=== PATIENT | female | born 1995 | race Caucasian/White ===

== ENCOUNTER 2019-03-14 22:49 | Emergency (ER) | payer OTHER ==
[2019-03-14] MEDS ORDERED: IBUPROFEN 600 MG TABLET PO ONE (23:30)
[2019-03-14] MEDS ORDERED: ACETAMINOPHEN 325 MG TABLET PO ONE (23:30)
--- NOTE | 2019-03-14 23:31 | ER Document Report ---
HPI - HPI Time Seen by Provider: 03/14/19 23:24 Pain Level: 4 Context: Patient is a 23-year-old female who presents emergency department with a chief complaint of left wrist pain. Around 1030 this evening she was wrestling in the kitchen and outstretched her arm and hyperextended her wrist. She has prior wrist fractures in the past. - ROS Notes: REVIEW OF SYSTEMS: CONSTITUTIONAL : Denies recent illness. Denies recent unintentional weight loss. Denies fever, chills, or sweats. MUSCULOSKELETAL: See HPI SKIN: Denies rash, itchiness, or lesions HEMATOLOGIC : Denies easy bruising or bleeding. NEUROLOGICAL: Denies no numbness or tingling denies weakness. Denies headache. Denies altered mental status. Denies alteration in speech. PSYCHIATRIC: Denies stress, anxiety, alteration in sleep patterns, or depressi on. All other systems reviewed and negative. - REPRODUCTIVE Reproductive: DENIES: : Past Medical History - Social History Smoking Status: Unknown if Ever Smoked Family History: Reviewed & Not Pertinent Vertical Provider Document - CONSTITUTIONAL Agree With Documented VS: Yes Exam Limitations: No Limitations General Appearance: No Apparent Distress Notes: PHYSICAL EXAMINATION: GENERAL: Appears well, healthy, well-nourished, no acute distress. HEAD: Normocephalic, atraumatic. EYES: PERRL, conjunctiva normal, all extraocular movements intact, sclera nonicteric EXTREMITIES: Normal strength and range of motion, no pitting or edema. No cyanosis. Tenderness noted to left wrist and anatomical snuffbox area. NEUROLOGICAL: Moves all extremities upon command. Strength 5/5 in all extremities. PSYCH: Normal mood, normal affect. SKIN: Warm, dry. No rash, lesions, ulcerations noted. Normal skin turgor. - INFECTION CONTROL TRAVEL OUTSIDE OF THE [place] IN LAST 30 DAYS: No Course - Re-evaluation Re-evalutation: 03/14/19 23:55 Patient's x-rays negative for any acute fracture. She does have pain noted at the anatomical snuffbox area. I am suspicious of a possible scaphoid bone fracture. No vascular compromise noted. Pulses 2+. Patient has good flexion and extension of all digits. Capillary refill less than 3 seconds. She will follow-up with orthopedics in regards to this visit. She will be laced in a thumb spica. Follow-up precautions were given. Verbal discharge instructions were given to the patient. They verbalized understanding. They are stable for discharge. - Vital Signs Vital signs: Temp Pulse Resp BP Pulse Ox 98.4 F 82 16 134/70 H 99 03/14/19 23:00 03/14/19 23:00 03/14/19 23:00 03/14/19 23:00 03/14/19 23:00 Discharge - Discharge Clinical Impression: Contusion of left wrist Qualifiers: Encounter type: initial encounter Qualified Code(s): S60.212A - Contusion of left wrist, initial encounter Condition: Stable Disposition: HOME, SELF-CARE Additional Instructions: You were seen today in the emergency department for a left wrist injury. At this time, there are no fractures, but you have pain in the anatomical snuffbox, which may indicate a fracture in one of your wrist bones. Please follow-up with your primary care provider if your symptoms persist. Please take ibuprofen 600 mg and Tylenol 1000 mg every 6 hours for your pain. You are also being placed in a splint. Please wear the splint to help with the pain. Please follow-up with orthopedics in regards to this visit. Referrals: PRESTON MANZANARES MD [ACTIVE STAFF] - Follow up in 3-5 days
--- NOTE | 2019-03-14 23:36 | RADIOLOGY REPORT (SQ) ---
EXAM DESCRIPTION: [facility]: XR WRIST 1-2 VIEWS Views: 2 CLINICAL HISTORY: 23 years Female, fell oin left wrist COMPARISON: None. FINDINGS: Negative for acute fracture, dislocation, or radiopaque foreign body. IMPRESSION: 1. No acute findings. 2. If symptoms persist, consider follow-up 4 view wrist series.
[2019-03-15 01:03] VITALS: BP 114/84
== END 2019-03-15 00:30 | disposition home or self-care (01) ==
LOC: ER 22:49
DX: S60.212A Contusion of left wrist, initial encounter (principal); M25.532 Pain in left wrist; X50.0XXA Overexertion from strenuous movement or load, initial encounter; Y93.83 Activity, rough housing and horseplay; Y92.000 Kitchen of unspecified non-institutional (private) residence as the place of occurrence of the external cause
CPT/HCPCS: 99283

== ENCOUNTER 2019-03-17 13:25 | Emergency (ER) | payer OTHER ==
[2019-03-17] MEDS ORDERED: HYDROCODONE/ACETAMINOPHEN 5-325 MG TABLET PO ONE (14:22)
--- NOTE | 2019-03-17 14:23 | ER Document Report ---
HPI - HPI Patient complains to provider of: Left wrist injury Time Seen by Provider: 03/17/19 13:59 Onset/Duration: Persistent Quality of pain: Achy Pain Level: 5 Context: Patient was wrestling and fell onto an outstretched hand 3 days ago. Patient was seen initially after this injury and had 2 view x-ray performed of the left wrist. Patient was advised by the discharge nurse that she should return in 3 days if she was not any better. Review of patient's discharge paperwork advised patient to follow-up with orthopedics in 3 to 5 days, patient did not follow-up with orthopedics. Patient denies any new injury. Associated Symptoms: Other - Left wrist pain Exacerbated by: Movement Relieved by: Denies Similar symptoms previously: Yes Recently seen / treated by doctor: Yes - ROS ROS below otherwise negative: Yes Systems Reviewed and Negative: Yes All other systems reviewed and negative - NEURO Neurology: DENIES: Weakness - GASTROINTESTINAL Gastrointestinal: DENIES: Nausea - REPRODUCTIVE Reproductive: DENIES: : - MUSCULOSKELETAL Musculoskeletal: REPORTS: Extremity pain - DERM Skin Color: Normal Skin Problems: None Past Medical History - General Information source: Patient - Social History Smoking Status: Current Every Day Smoker Smoking Education Provided: Yes Frequency of alcohol use: Occasional Drug Abuse: None Occupation: none Lives with: Spouse/Significant other Family History: Reviewed & Not Pertinent - Medical History Medical History: Negative Renal/ Medical History: Denies: Hx Peritoneal Dialysis Past Surgical History: Reports: Hx Oral Surgery - tonsils/adenoids Vertical Provider Document - CONSTITUTIONAL Agree With Documented VS: Yes Exam Limitations: No Limitations General Appearance: WD/WN, No Apparent Distress - INFECTION CONTROL TRAVEL OUTSIDE OF THE [place] IN LAST 30 DAYS: No - HEENT HEENT: Atraumatic, Normocephalic - NECK Neck: Normal Inspection - RESPIRATORY Respiratory: No Respiratory Distress - CARDIOVASCULAR Pulses: Normal: Radial - MUSCULOSKELETAL/EXTREMETIES Musculoskeletal/Extremeties: MAEW, Tender - Left wrist tenderness over distal radius, patient with scaphoid tenderness, No Edema - NEURO Level of Consciousness: Awake, Alert, Appropriate Motor/Sensory: No Motor Deficit - DERM Integumentary: Warm, Dry, No Rash Course - Re-evaluation Re-evalutation: 03/17/19 Patient without any obvious fracture on x-ray with additional views obtained. Patient immobilized and advised to follow-up with orthopedics for further evaluation given her tenderness over the anatomical snuffbox. Discussed with patient concern about possible hidden fracture and need for orthopedic follow- up. - Vital Signs Vital signs: Temp Pulse Resp BP Pulse Ox 98.2 F 92 16 122/69 98 03/17/19 13:41 03/17/19 13:41 03/17/19 13:41 03/17/19 13:41 03/17/19 13:41 - Diagnostic Test Radiology reviewed: Image reviewed, Reports reviewed Procedures - Immobilization Left Wrist Pre-Proc Neuro Vasc Exam: Normal Immobilizer type: Thumb spica Performed by: PCT Post-Proc Neuro Vasc Exam: Normal Alignment checked and good: Yes Discharge - Discharge Clinical Impression: Left wrist sprain Qualifiers: Encounter type: initial encounter Qualified Code(s): S63.502A - Unspecified sprain of left wrist, initial encounter Condition: Stable Disposition: HOME, SELF-CARE Instructions: Ice & Elevation ([facility]), Possible Hidden Fracture ([facility]), Splint Precautions ([facility]), Wrist Sprain ([facility]) Additional Instructions: Return immediately for any new or worsening symptoms Followup with your primary care provider, call tomorrow to make a followup appointment Follow-up with orthopedics for further evaluation, call tomorrow for an appointment. Prescriptions: Naproxen [Naprosyn 250 Nmg Tablet] 1 tab PO BID #14 tablet Forms: Smoking Cessation Education Referrals: [facility] [Provider Group] - Follow up tomorrow
--- NOTE | 2019-03-17 15:04 | RADIOLOGY REPORT (SQ) ---
EXAM DESCRIPTION: WRIST LEFT 3 VIEWS COMPLETED DATE/TIME: 03/17/2019 2:49 pm REASON FOR STUDY: L wrist pain, include scaphoid view COMPARISON: LEFT WRIST RADIOGRAPHS 03/14/2019 NUMBER OF VIEWS: Three views. TECHNIQUE: AP, lateral, and oblique radiographic images acquired of the left wrist. LIMITATIONS: None. FINDINGS: MINERALIZATION: Normal. BONES: No acute fracture or dislocation. No worrisome bone lesions. Normal alignment. No periostea l reaction or abnormal sclerosis. SOFT TISSUES: No soft tissue swelling. No foreign body. OTHER: No other significant finding. IMPRESSION: NO RADIOGRAPHIC EVIDENCE OF ACUTE/SUBACUTE INJURY. TECHNICAL DOCUMENTATION: JOB ID: [id number]- All Rights Reserved Reading location - IP/workstation name: [email or web address]
[2019-03-17 15:36] VITALS: BP 116/41
== END 2019-03-17 15:36 | disposition home or self-care (01) ==
LOC: ER 13:25
DX: S63.502A Unspecified sprain of left wrist, initial encounter (principal); W19.XXXA Unspecified fall, initial encounter; F17.200 Nicotine dependence, unspecified, uncomplicated
CPT/HCPCS: 99283

== ENCOUNTER 2019-11-20 18:09 | Emergency (ER) | payer OTHER ==
[2019-11-20] MEDS ORDERED: ACETAMINOPHEN 325 MG TABLET PO ONE (19:47)
[2019-11-20] MEDS ORDERED: NORMAL SALINE IV ONE (19:50)
--- NOTE | 2019-11-20 19:50 | ER Document Report ---
ED Medical Screen (RME) - General Chief Complaint: Flu Symptoms Stated Complaint: FEVER/CHILLS/DIZZYNESS/SHORTNESS OF BREATHE/COUGH Time Seen by Provider: 11/20/19 19:43 Mode of Arrival: Ambulatory Information source: Patient Notes: 24-year-old female presents to ED for complaint of fever shortness of breath dizziness sore throat. She states she was fine yesterday woke up this morning sick. Her temperature was 102 at home and is 101.5 in the emergency room. She states she took Tylenol this morning has not had any Tylenol or Motrin this evening. Pulse is 138 blood pressure is 111/68. Last menstrual cycle started today she does have an IUD. She drinks occasionally smokes when she drinks less of drugs. History of lung disease and asthma she is allergic to flu vaccine she has had all surgeries. Pains in the chest when she coughs achy all over. I have greeted and performed a rapid initial assessment of this patient. A comprehensive ED assessment and evaluation of the patient, analysis of test results and completion of medical decision making process will be conducted by an additional ED providers. TRAVEL OUTSIDE OF THE [place] IN LAST 30 DAYS: No - Related Data Allergies/Adverse Reactions: Influenza Virus Vaccines Allergy (Intermediate, Verified 11/20/19 19:46) Hives amoxicillin [From Augmentin] Allergy (Verified 11/20/19 19:46) Cephalosporins Allergy (Verified 11/20/19 19:46) clavulanic acid [From Augmentin] Allergy (Verified 11/20/19 19:46) Penicillins Allergy (Verified 11/20/19 19:46) Sulfa (Sulfonamide Antibiotics) Allergy (Verified 11/20/19 19:46) Past Medical History Renal/ Medical History: Denies: Hx Peritoneal Dialysis Past Surgical History: Reports: Hx Oral Surgery - tonsils/adenoids Physical Exam - Vital signs Vitals: Temp Pulse Resp BP Pulse Ox 101.5 F H 138 H 24 H 111/68 100 11/20/19 18:48 11/20/19 18:48 11/20/19 18:48 11/20/19 18:48 11/20/19 18:48 Course - Vital Signs Vital signs: Temp Pulse Resp BP Pulse Ox 101.5 F H 138 H 24 H 111/68 100 11/20/19 18:48 11/20/19 18:48 11/20/19 18:48 11/20/19 18:48 11/20/19 18:48
--- NOTE | 2019-11-20 20:22 | RADIOLOGY REPORT (SQ) ---
EXAM DESCRIPTION: XR CHEST 2 VIEWS COMPLETED DATE/TME: 11/20/2019 19:48 CLINICAL HISTORY: 24 years, Female, Cough and fever COMPARISON: None. NUMBER OF VIEWS: 2 TECHNIQUE: LIMITATIONS: None. FINDINGS: Lungs grossly clear. Cardiomediastinal silhouette is within normal limits. Visualized bones are unremarkable IMPRESSION: Lungs grossly clear copyright 2011 [employer]- All Rights Reserved
[2019-11-20 21:29] LABS: APPEARANCE,URINE CLEAR; BILIRUBIN,URINE NEGATIVE (NEGATIVE); COLOR,URINE YELLOW; GLUCOSE, URINE NEGATIVE (NEGATIVE); KETONES,URINE NEGATIVE (NEGATIVE); PROTEIN,URINE NEGATIVE (NEGATIVE); URINE SPECIFIC GRAVITY 1.015; UROBILINOGEN,URINE NEGATIVE mg/dL (<2.0)
[2019-11-20 21:50] LABS: A TYPE INFLUENZA AG NEGATIVE (NEGATIVE); B INFLUENZA AG NEGATIVE (NEGATIVE)
[2019-11-20 22:08] LABS: ABSOLUTE BASOPHILS # (AUTO) 0.1 10^3/uL (0.0-0.2); ABSOLUTE LYMPHOCYTES (AUTO) 1.6 10^3/uL (0.5-4.7); ABSOLUTE NEUT (AUTO) 9.4 10^3/uL (1.7-8.2); BASOPHILS % (AUTO) 0.4 % (0-2); EOSINOPHILS % (AUTO) 0.3 % (0-6); LYMPHOCYTES % (AUTO) 13.4 % (13-45); MEAN CORPUSCULAR HEMOGLOBIN 27.3 pg (27.0-33.4); MEAN CORPUSCULAR HGB CONC 34.2 g/dL (32.0-36.0); MEAN CORPUSCULAR VOLUME 80 fl (80-97); MONOCYTES % (AUTO) 8.1 % (3-13); PLATELET COUNT 380 10^3/uL (150-450); RED BLOOD COUNT 5.14 10^6/uL (3.72-5.28); RED CELL DISTRIBUTION WIDTH 12.8 % (11.5-14.0); SEGMENTED NEUTROPHILS % (AUTO) 77.8 % (42-78); TOTAL CELLS COUNTED % (AUTO) 100 %; WHITE BLOOD COUNT 12.1 10^3/uL (4.0-10.5)
[2019-11-20 22:13] LABS: VENOUS BLOOD BASE EXCESS -0.5 mmol/L; VENOUS BLOOD HCO3 24.6 mmol/L (20-32); VENOUS BLOOD PH 7.39 (7.30-7.42)
[2019-11-20 22:18] LABS: INTERNATIONAL RATION (INR) 0.97; PROTHROMBIN TIME 12.9 SEC (11.4-15.4)
[2019-11-20 22:25] LABS: ALBUMIN 4.7 g/dL (3.5-5.0); ALKALINE PHOSPHATASE 91 U/L (38-126); ANION GAP 13 (5-19); ASPARTATE AMINO TRANSFERASE 22 U/L (14-36); BILIRUBIN,DIRECT 0.2 mg/dL (0.0-0.4); BILIRUBIN,TOTAL 0.8 mg/dL (0.2-1.3); BLOOD UREA NITROGEN 13 mg/dL (7-20); CALCIUM 9.5 mg/dL (8.4-10.2); CARBON DIOXIDE 26 mmol/L (22-30); CHLORIDE 98 mmol/L (98-107); GLUCOSE 101 mg/dL (75-110); POTASSIUM 4.1 mmol/L (3.6-5.0); TOTAL PROTEIN 7.9 g/dL (6.3-8.2)
[2019-11-21] MEDS ORDERED: OSELTAMIVIR PHOSPHATE 75 MG CAPSULE PO ONE (00:41)
--- NOTE | 2019-11-21 00:48 | ER Document Report ---
ED Flu Like - General Chief Complaint: Flu Symptoms Stated Complaint: FEVER/CHILLS/DIZZYNESS/SHORTNESS OF BREATHE/COUGH Time Seen by Provider: 11/20/19 19:43 Mode of Arrival: Ambulatory Notes: This 24-year-old woman presents to the emergency department with a history of onset of flulike symptoms today. She states that she began having fatigue, muscle aches and pains and nasal drainage with cough last night, today she spiked fever and her symptoms worsen. She has about past medical history of Lyme's disease and asthma. Breathing is doing well and she denies nausea and vomiting. TRAVEL OUTSIDE OF THE [place] IN LAST 30 DAYS: No - Related Data Allergies/Adverse Reactions: Influenza Virus Vaccines Allergy (Intermediate, Verified 11/20/19 19:46) Hives amoxicillin [From Augmentin] Allergy (Verified 11/20/19 19:46) Cephalosporins Allergy (Verified 11/20/19 19:46) clavulanic acid [From Augmentin] Allergy (Verified 11/20/19 19:46) Penicillins Allergy (Verified 11/20/19 19:46) Sulfa (Sulfonamide Antibiotics) Allergy (Verified 11/20/19 19:46) Home Medications: denies Past Medical History - General Information source: Patient - Social History Smoking Status: Current Some Day Smoker Chew tobacco use (# tins/day): No Frequency of alcohol use: Occasional Drug Abuse: None Family History: Reviewed & Not Pertinent Patient has suicidal ideation: No Patient has homicidal ideation: No Renal/ Medical History: Denies: Hx Peritoneal Dialysis Past Surgical History: Reports: Hx Oral Surgery - tonsils/adenoids Review of Systems - Review of Systems Notes: Constitutional: + Fever. HENT: Negative for sore throat. Eyes: Negative for visual changes. Cardiovascular: Negative for chest pain. Respiratory: + Cough and congestion, no shortness of breath. Gastrointestinal: Negative for abdominal pain, vomiting or diarrhea. Genitourinary: Negative for dysuria. Musculoskeletal: Negative for back pain. Skin: Negative for rash. Neurological: Negative for headaches, weakness or numbness. 10 point ROS negative except as marked above and in HPI. Physical Exam - Vital signs Vitals: Temp Pulse Resp BP Pulse Ox 101.5 F H 138 H 24 H 111/68 100 11/20/19 18:48 11/20/19 18:48 11/20/19 18:48 11/20/19 18:48 11/20/19 18:48 - Notes Notes: PHYSICAL EXAMINATION: Physical Exam: General: Well-nourished well-developed 24-year-old female in no acute distress HEENT: NC/AT, pupils equal round and reactive to light, MM moist,nares congestion, oropharynx clear, airway patent Neck: supple, no adenopathy, no masses. Good range of motion Lungs: clear, no wheezing, no rales no rhonchi CVS: Regular rate and rhythm no murmur gallop or rub Abdomen: Soft, active, nontender, no masses, no hepatosplenomegaly Ext: No edema, clubbing or cyanosis. Neuro: Alert and responsive, moving all 4 extremities on command, cranial nerves intact, no focal findings Skin: Intact no open lesions, no rash PSYCH: Normal mood, normal affect. Course - Re-evaluation Re-evalutation: 11/21/19 00:45 Patient presents with flulike illness, laboratory data was reviewed along with chest x-ray all of which are nondiagnostic. Flu test was negative, however the influenza testing used at [facility] is only approximately 50% predictive. I explained to the patient that we will treat her empirically, she is given Tamiflu 75 mg in the emergency department. She will be discharged home. - Vital Signs Vital signs: Temp Pulse Resp BP Pulse Ox 99.8 F 100 20 114/54 L 95 11/20/19 21:53 11/20/19 21:52 11/20/19 21:52 11/20/19 21:52 11/20/19 21:52 - Laboratory Result Diagrams: 11/20/19 21:51 11/20/19 21:51 Laboratory results interpreted by me: 11/20/19 11/20/19 11/20/19 21:05 21:51 21:51 WBC 12.1 H Absolute Neuts (auto) 9.4 H Sodium 136.6 L Urine Blood SMALL H - Diagnostic Test Radiology reviewed: Image reviewed, Reports reviewed - Chest x-ray: No acute infiltrate or effusion noted. Discharge - Discharge Clinical Impression: Influenza Fever Qualifiers: Fever type: unspecified Qualified Code(s): R50.9 - Fever, unspecified Condition: Good Disposition: HOME, SELF-CARE Instructions: Influenza ([facility]) [id number], Acetaminophen Additional Instructions: You are diagnosed with influenza in the emergency department tonight. Please push fluids, Gatorade, jeff kar, Sprite, water, popsicles to maintain good h ydration. You may use Tylenol and alternate with ibuprofen every 4 hours for control of fever, muscle aches and pains. Please take medication Tamiflu as prescribed as it may shorten the duration and severity of your symptoms. You have been provided and a work excuse for 1 week. You may return to work sooner if your symptoms have resolved. HOME CARE INSTRUCTIONS & INFORMATION: Thank you for choosing us for your medical needs. We hope you're satisfied with the care you received. After you l eave, you must properly care for your problem and, at the same time, observe its progress. Any condition can change. Some illnesses can change rapidly over hours or days. If your condition worsens, return to the Emergency Department or see your physician promptly. ABOUT YOUR X-RAYS AND EKG'S: If you had an EKG or X-rays taken, they have been read by the Emergency Physician. The X-rays and EKG's will also be read by a Radiologist or Steeler within 24 hours. If discrepancies are noted, you will be notified by telephone. Please be certain the ED has a correct telephone number & address where you can be reached. Also, realize that some fractures or abnormalities do not show up on initial X-rays. If your symptoms continue, see your physician. ABOUT YOUR LABORATORY TEST: If you had laboratory tests, the results have been reviewed by the Emergency Physician. Some test results (for example cultures) may not be available for several days. You will be contacted if any test result shows you need additional treatment. Please be certain the ED has a correct telephone number and address where you can be reached. ABOUT YOUR MEDICATIONS: You will receive instructions on how to take your medicine on the prescription label you receive. Additional information may be provided by the Pharmacy. If you have questions afterwards, call the ED for clarification or further instructions. Some prescribed medications may cause drowsiness. Do not perform tasks such as driving a car or operating machinery without consulting your Pharmacist. If you feel you need a refill of pain medication, your condition will need re-evaluation. Please do not call for a refill of any medication. ABOUT YOUR SIGNATURE: Signature of this document acknowledges to followin. Understanding that you received emergency treatment and that you may be released before al medical problems are known or treated. Please be certain the ED has a correct phone number & address where you can be reached. 2. Acknowledgement that you will arrange for follow-up care as recommended. 3. Authorization for the Emergency Physician to provide information to your follow-up Physician in order to maximize your care. AT ANY TIME, IF YOUR SYMPTOMS CHANGE SIGNIFICANTLY OR WORSEN OR YOU DEVELOP NEW SYMPTOMS, RETURN TO THE EMERGENCY DEPARTMENT IMMEDIATELY FOR RE-EVALUATION. OUR GOAL IS TO PROVIDE EXCELLENT MEDICAL CARE! WE HOPE THAT WE HAVE MET YOUR EXPECTATIONS DURING YOUR EMERGENCY DEPARTMENT VISI T AND THAT YOU FEEL YOU HAVE RECEIVED EXCELLENT CARE! Prescriptions: Oseltamivir Phosphate [Tamiflu 75 mg Capsule] 75 mg PO BID #10 capsule Forms: Return to Work
[2019-11-21 01:15] VITALS: BP 109/59
--- NOTE | 2019-11-21 10:00 | EKG REPORT ---
SEVERITY:- BORDERLINE ECG - SINUS TACHYCARDIA PROBABLE LEFT ATRIAL ABNORMALITY : Confirmed by: Phil Brewster 21-Nov-2019 09:59:18
== END 2019-11-21 01:12 | disposition home or self-care (01) ==
LOC: ER 18:09
DX: J11.1 Influenza due to unidentified influenza virus with other respiratory manifestations (principal); R50.9 Fever, unspecified; M79.10 Myalgia, unspecified site; Z88.0 Allergy status to penicillin; Z88.2 Allergy status to sulfonamides
CPT/HCPCS: 93005; 99284; 96360; 96361; 36415; 87040; 87070; 87880; 82962; 83605; 84703; 85025; 85610; 80053; 81001; 82803; 87804; 71046; 93010; J3490; J7030